=== PATIENT | male | born 1980 | race African-American/Black ===

== ENCOUNTER 2016-07-15 10:58 | Emergency (ER) | payer OTHER ==
[~2016-07-15] VITALS: Ht 170.2 cm; Wt 881.1 kg
[~2016-07-15 10:58] MED LIST: COLACE50 MG PO; PEPCID20 MG PO
[2016-07-15 13:06] LABS: ADD MIUA? YES; BILIRUBIN NEGATIVE; BLOOD LARGE; COLOR YELLOW ((YELLOW)); GLUCOSE (STRIP) NEGATIVE; KETONES NEGATIVE; LEUKOCYTES NEGATIVE; NITRITE NEGATIVE; PROTEIN (STRIP) NEGATIVE; SPECIFIC GRAVITY 1.021 (1.000-1.030); UROBILINOGEN 0.2 MG/DL (0.2-1.0)
[2016-07-15 13:44] LABS: BACTERIA 2+ /HPF; EPITHELIAL CELLS RARE /HPF; MUCUS NONE SEEN /LPF; RED BLOOD CELLS 40-50 /HPF (0-5); UCUL ADDED? NO; WHITE BLOOD CELLS NONE SEEN /HPF (0-5)
[2016-07-15 13:45] LABS: AMORPHOUS URATES CRYSTALS 1+; CASTS NONE SEEN /LPF; CRYSTALS PRESENT
[2016-07-15] MEDS ORDERED: CIPRO500 MG PO (14:18)
[2016-07-15 14:41] VITALS: BP 117/67
[2016-07-15 14:53] LABS: HEMATOCRIT 45.9 % (38.0-50.0); MCH 30.6 PG (29.0-34.0); MCHC 35.3 G/DL (30.0-36.0); MCV 86.6 FL (86-99); MEAN PLAT.VOLUME 11.6 uM^3 (9.0-12.4); PLATELET COUNT 171 K/uL (156-360); RBC DIS.WIDTH-CV 12.8 % (11.8-14.6); RBC DIS.WIDTH-SD 40.2 % (39-53); WHITE BLOOD COUNT 7.8 K/uL (4.1-10.2)
[2016-07-15 15:06] LABS: CHLORIDE 104 mEq/L (99-109); POTASSIUM 3.5 mEq/L (3.7-5.4); SODIUM 140 mEq/L (136-147)
[2016-07-15 15:08] LABS: GLUCOSE 72 mg/dL (70-99)
[2016-07-15 15:09] LABS: ANION GAP 8 MEQ/L (2-14)
[2016-07-15 15:12] LABS: GFR ESTIMATE (CALCULATED) > 59 mL/min/
[2016-07-15 15:13] LABS: UREA NITROGEN (BUN) 16 mg/dL (9-23)
[2016-07-18 11:44] LABS: CHLAMYDIA TRACHOMATIS NEGATIVE; NEISSERIA GONORRHOEAE NEGATIVE
== END 2016-07-15 14:44 | disposition home or self-care (01) ==
LOC: EME 10:58
PROVIDERS: Nurse Practitioner Family
DX: N39.0 Urinary tract infection, site not specified (principal); R31.9 Hematuria, unspecified; K59.00 Constipation, unspecified
CPT/HCPCS: 74000; 80048; 81003; 85027; 87491; 87591; 99281; 99284

== ENCOUNTER 2017-08-08 10:25 | Emergency (ER) | payer OTHER ==
[~2017-08-08] VITALS: Ht 170.2 cm; Wt 88.7 kg
[~2017-08-08 10:25] MED LIST changes: +CIPRO500 MG PO
[2017-08-08] MEDS ORDERED: NAPROXEN500 MG PO (11:49)
[2017-08-08 12:08] VITALS: BP 140/76
== END 2017-08-08 12:09 | disposition home or self-care (01) ==
LOC: EME 10:25
PROC: 2W3GX1Z Immobilization of Right Thumb using Splint (ICD-10-PCS; principal; 2017-08-08)
DX: S63.501A Unspecified sprain of right wrist, initial encounter (principal); Y99.0 Civilian activity done for income or pay
CPT/HCPCS: 73110; 99281; 99284